=== PATIENT | male | born 1990 | race African-American/Black ===

== ENCOUNTER 2020-03-18 01:26 | Emergency (ER) | payer OTHER ==
[2020-03-18 01:48] LABS: ABSOLUTE BASOPHILS # (AUTO) 0.1 10^3/uL (0.0-0.2); ABSOLUTE EOSINOPHILS # (AUTO) 0.1 10^3/uL (0.0-0.6); ABSOLUTE LYMPHOCYTES (AUTO) 2.3 10^3/uL (0.5-4.7); ABSOLUTE MONOCYTES (AUTO) 0.6 10^3/uL (0.1-1.4); ABSOLUTE NEUT (AUTO) 4.2 10^3/uL (1.7-8.2); BASOPHILS % (AUTO) 0.9 % (0-2); EOSINOPHILS % (AUTO) 1.7 % (0-6); HEMATOCRIT 39.1 % (37.9-51.0); HEMOGLOBIN 13.6 g/dL (13.5-17.0); LYMPHOCYTES % (AUTO) 31.5 % (13-45); MEAN CORPUSCULAR HEMOGLOBIN 32.5 pg (27.0-33.4); MEAN CORPUSCULAR HGB CONC 34.9 g/dL (32.0-36.0); MEAN CORPUSCULAR VOLUME 93 fl (80-97); MONOCYTES % (AUTO) 8.1 % (3-13); PLATELET COUNT 158 10^3/uL (150-450); SEGMENTED NEUTROPHILS % (AUTO) 57.8 % (42-78); TOTAL CELLS COUNTED % (AUTO) 100 %; WHITE BLOOD COUNT 7.2 10^3/uL (4.0-10.5)
--- NOTE | 2020-03-18 01:48 | ER Document Report ---
ED Cardiac <JOE MAHMOOD - Last Filed: 03/18/20 07:49> <GIANCARLOJONATHAN M - Last Filed: 03/18/20 14:13> - General Chief Complaint: Chest Pain Stated Complaint: CHEST PAIN Time Seen by Provider: 03/18/20 01:38 Notes: Patient is a 30-year-old male who comes emergency department for chief complaint of chest pain. He states that he woke up, got into the shower, and then started having chest pain that radiated from the front to the back. He states it was sharp and very painful, he states he tried to breathe through it and it was not getting better so he called EMS. EMS gave him 325 mg of aspirin and 2 sublingual nitroglycerin. He states now the pain is almost gone. He denies dizziness, shortness of breath, cough, fever, chills, nausea, vomiting. He did recently travel from [place] over the course of a few days. He denies lower extremity swelling. He denies recent illness exposures. He is ex[employer], denies any diagnosed medical history or daily medications. He denies smoking, alcohol, recreational drugs. Fianc at bedside. (JOE MAHMOOD) - Related Data Allergies/Adverse Reactions: No Known Allergies Allergy (Unverified 03/18/20 01:55) Past Medical History - General Information source: Patient - Social History Smoking Status: Never Smoker Drug Abuse: None Lives with: Family Family History: Reviewed & Not Pertinent - Medical History Medical History: Negative Surgical Hx: Negative - Immunizations Immunizations up to date: Yes Hx Diphtheria, Pertussis, Tetanus Vaccination: Yes <JOE MAHMOOD - Last Filed: 03/18/20 07:49> Review of Systems - Review of Systems Constitutional: No symptoms reported EENT: No symptoms reported Cardiovascular: See HPI Respiratory: No symptoms reported Gastrointestinal: No symptoms reported Genitourinary: No symptoms reported Male Genitourinary: No symptoms reported Musculoskeletal: No symptoms reported Skin: No symptoms reported Hematologic/Lymphatic: No symptoms reported Neurological/Psychological: No symptoms reported <JOE MAHMOOD - Last Filed: 03/18/20 07:49> Physical Exam <JOE MAHMOOD - Last Filed: 03/18/20 07:49> - Vital signs Vitals: Resp Pulse Ox 21 H 99 03/18/20 01:32 03/18/20 01:32 - Notes Notes: GENERAL: Alert, interacts well. No acute distress. HEAD: Normocephalic, atraumatic. EYES: Pupils equal, round, and reactive to light. Extraocular movements intact. ENT: Oral mucosa moist, tongue midline. Oropharynx unremarkable. Airway patent. NECK: Full range of motion. Supple. Trachea midline. No lymphadenopathy. LUNGS: Clear to auscultation bilaterally, no wheezes, rales, or rhonchi. No respiratory distress. Non-tender chest wall. HEART: Regular rate and rhythm. No murmur ABDOMEN: Soft, non-tender. Non-distended. EXTREMITIES: Moves all 4 extremities spontaneously. No edema, normal radial and dorsalis pedis pulses bilaterally. No cyanosis. BACK: no cervical, thoracic, lumbar midline tenderness. No saddle anesthesia, normal distal neurovascular exam. Moves all extremities in full range of motion. NEUROLOGICAL: Alert and oriented x3. Normal speech. Cranial nerves II through XII grossly intact. Strength 5/5 in all extremities. PSYCH: Normal affect, normal mood. SKIN: Warm, dry, normal turgor. No rashes or lesions noted. (JOE MAHMOOD) Course - Laboratory Result Diagrams: 03/18/20 01:35 03/18/20 01:35 <JOE MAHMOOD - Last Filed: 03/18/20 07:49> - Laboratory Result Diagrams: 03/18/20 01:35 03/18/20 01:35 <JONATHAN MONDRAGON - Last Filed: 03/18/20 14:13> - Re-evaluation Re-evalutation: Patient alert and well-appearing. On reevaluation chest pain is resolved. He stated he started feeling better almost as soon as he got the nitroglycerin. His chest wall is nontender, he has no current symptoms, no other symptoms. No personal or family history reported. Denies recreational drugs. No reported risk factors. EKG is slightly nonspecific, does appear to show ST segment elevations in the anterior leads although this could be LVH. Unremarkable otherwise. Chest x-ray unremarkable. Because of patient's reported recent travel D-dimer was performed and negative. Because of his sharp pain and ST elevations I did an ESR for possible pericarditis but this was not elevated. Chemistry unremarkable, CBC unremarkable, initial troponin 0.021. Patient with no symptoms on reevaluation, troponin cycled and now 0.016. I discussed with Dr. Corado, she recommends cardiology consult. I discussed with Dr. Stokes, he states he will evaluate the patient. 03/18/20 06:[address] Stokes, he states that he recommends patient get an echocardiogram, if this is unremarkable he can follow-up and be discharged. T his was ordered. (JOE MAHMOOD) 03/18/20 08:00 Sign out received from Joe Mahmood PA-C. 03/18/20 14:09 Echo completed. Interpretation: Left ventricle is normal in size. Left ventricular systolic function is normal. Ejection fraction estimate is 65-70%. Doppler measurements suggest normal left ventricular diastolic function. The left ventricular wall motion is normal. Trace MR, trace TR, mild PI. No prior studies for comparison. As ECHO is normal, patient will be discharged home with instructions to follow up with Dr. Stokes. Return precautions given. Patient understands and agrees with the plan. (JONATHAN MONDRAGON) - Vital Signs Vital signs: Temp Pulse Resp BP Pulse Ox 98.4 F 25 H 144/67 H 99 03/18/20 01:33 03/18/20 13:01 03/18/20 13:00 03/18/20 05:01 - Laboratory Laboratory results interpreted by me: 03/18/20 03/18/20 01:35 01:35 RBC 4.20 L BUN 22 H Creatine Kinase 450 H - EKG Interpretation by Me Additional EKG results interpreted by me: EKG shows sinus bradycardia at a rate of 53, QTc is 399, normal axis. ST segment elevation in anterior leads. Large amplitude throughout, possible LVH. No T wave inversions in consecutive leads. (JOE MAHMOOD) Discharge <JOE MAHMOOD - Last Filed: 03/18/20 07:49> <JONATHAN MONDRAGON - Last Filed: 03/18/20 14:13> - Discharge Clinical Impression: Chest pain Qualifiers: Chest pain type: unspecified Qualified Code(s): R07.9 - Chest pain, unspecified Condition: Stable Disposition: HOME, SELF-CARE Instructions: Chest Pain of Unclear Cause ([facility]) Referrals: ELVIN STOKES MD [ACTIVE PROVISIONAL STAFF] - Follow up in 3-5 days
--- NOTE | 2020-03-18 02:15 | RADIOLOGY REPORT (SQ) ---
EXAM DESCRIPTION: XR CHEST 1 VIEW COMPLETED DATE/TME: 03/18/2020 01:51 CLINICAL HISTORY: 30 years, Male, chest pain COMPARISON: None. NUMBER OF VIEWS: One TECHNIQUE: AP view the chest LIMITATIONS: None. FINDINGS: The lungs are clear. The heart is normal in size. No pneumothorax or pleural effusion. Bones are unremarkable. IMPRESSION: No acute cardiopulmonary abnormality. copyright 2010 [employer]- All Rights Reserved
[2020-03-18 02:19] LABS: ALBUMIN 4.2 g/dL (3.5-5.0); ALKALINE PHOSPHATASE 58 U/L (38-126); ANION GAP 8 (5-19); ASPARTATE AMINO TRANSFERASE 41 U/L (17-59); BILIRUBIN,DIRECT 0.1 mg/dL (0.0-0.4); BILIRUBIN,TOTAL 0.7 mg/dL (0.2-1.3); BLOOD UREA NITROGEN 22 mg/dL (7-20); CALCIUM 9.3 mg/dL (8.4-10.2); CARBON DIOXIDE 29 mmol/L (22-30); CHLORIDE 100 mmol/L (98-107); CREATINE KINASE 450 U/L (55-170); GLUCOSE 101 mg/dL (75-110); POTASSIUM 3.8 mmol/L (3.6-5.0)
[2020-03-18 02:30] LABS: CREATINE KINASE MB 2.25 ng/mL (<4.55); TROPONIN I 0.021 ng/mL
--- NOTE | 2020-03-18 13:45 | XCELERA REPORT ---
[address] [address] Transthoracic Echocardiogram Report Name: ELVIN NOE Age: 30 yrs Gender: Male : 1990 Patient Status: Emergency Patient Location: ER Study Date: 03/18/2020 08:24 AM Height: 77 in Weight: 220 lb BSA: 2.3 m2 Procedure: A complete two-dimensional transthoracic echocardiogram was performed (2D, M-mode, spectral and color flow Doppler). The study was technically good with many images being of high quality. Reason For Study: CP, Requested by Dr. Stokes (Cardiology) Ordering Physician: KAYDEN SUTTON Performed By: Carla Puente Interpretation Summary The left ventricle is normal in size. Left ventricular systolic function is normal. The Ejection Fraction estimate is 65-70%. Doppler measurements suggest normal left ventricular diastolic function. The left ventricular wall motion is normal. Trace MR, trace TR, mild PI. No prior studies for comparison. MMode/2D Measurements & Calculations RVDd: 2.6 cm LVIDd: 5.2 cm FS: 34.7 % Ao root diam: IVSd: 1.1 cm LVIDs: 3.4 cm EDV(Teich): 3.1 cm 132.1 ml Ao root area: LVPWd: 1.2 cm ESV(Teich): 7.3 cm2 48.2 ml EF(Teich): 63.5 % EDV(MOD-sp4): SV(MOD-sp4): 131.9 ml 88.9 ml ESV(MOD-sp4): 42.9 ml EF(MOD-sp4): 67.4 % Doppler Measurements & Calculations MV E max juanjo: MV dec slope: Ao V2 max: LV V1 max P.9 cm/sec 128.2 cm/sec 5.2 mmHg MV A max juanjo: 220.6 cm/sec2 Ao max P.6 mmHgLV V1 max: 45.6 cm/sec MV dec time: 0.24 sec 114.2 cm/sec MV E/A: 1.2 PA V2 max: PI end-d juanjo: TR max juanjo: 82.6 cm/sec 59.0 cm/sec 251.8 cm/sec PA max P.7 mmHg TR max P.4 mmHg Left Ventricle The left ventricle is normal in size. Left ventricular systolic function is normal. The Ejection Fraction estimate is 65-70%. Doppler measurements suggest normal left ventricular diastolic function. The left ventricular wall motion is normal. Right Ventricle The right ventricle is grossly normal size. The right ventricular systolic function is normal. Atria The right atrium is normal. The left atrial size is normal. The interatrial septum is difficult to see, but appears to be grossly normal. Mitral Valve The mitral valve is normal in structure and function. There is a trace amount of mitral regurgitation. Aortic Valve The aortic valve is normal in structure and functions normally. No aortic regurgitation is present. Tricuspid Valve The tricuspid is normal in structure and function. There is a trace amount of tricuspid regurgitation. Pulmonic Valve The pulmonic valve is normal in structure and function. There is a mild amount of pulmonic regurgitation. Effusions There is no pericardial effusion. There is no pleural effusion. : KAYDEN SUTTON Antonio
[2020-03-18 14:35] VITALS: BP 133/82
--- NOTE | 2020-03-18 15:16 | EKG REPORT ---
SEVERITY:- ABNORMAL ECG - SINUS RHYTHM PROBABLE LEFT VENTRICULAR HYPERTROPHY ANTERIOR ST ELEVATION, PROBABLY DUE TO LVH : Confirmed by: Nellie Maher MD 18-Mar-2020 15:15:53
== END 2020-03-18 14:38 | disposition home or self-care (01) ==
LOC: ER 01:26
DX: R07.9 Chest pain, unspecified (principal)
CPT/HCPCS: 36415; 71045; 80053; 82550; 82553; 84484; 85025; 85379; 85652; 93005; 93010; 93306; 99285